=== PATIENT | male | born 1960 | race Caucasian/White ===

== ENCOUNTER 2017-02-26 13:30 | Emergency (ER) | payer MEDICARE, OTHER ==
[~2017-02-26] VITALS: Ht 167.6 cm; Wt 70.3 kg
[~2017-02-26 13:30] MED LIST: ALLOPURINOL PO; CITALOPRAM PO; LEVOTHYROXINE PO; QUET400T PO; SIMVASTATIN PO
--- NOTE | 2017-02-26 13:55 | NUR ---
MSE DONE BY DR WOO IN ROOM AT BEDSIDE.
--- NOTE | 2017-02-26 14:14 | NUR ---
Patient discharged to home in stable conditon. Written and verbal after care instructions given. Patient verbalizes understanding of instructions.
== END 2017-02-26 14:18 | disposition home or self-care (01) ==
LOC: ER 13:30
DX: J20.9 Acute bronchitis, unspecified (principal); E78.5 Hyperlipidemia, unspecified; E03.9 Hypothyroidism, unspecified; Z98.1 Arthrodesis status
CPT/HCPCS: 99281; A4663